=== PATIENT | female | born 1995 | race Caucasian/White ===

== ENCOUNTER 2019-12-27 12:49 | Outpatient (CLI) | payer OTHER ==
[~2019-12-27 12:49] MED LIST: Iopamidol 300 61% 50 ML VIAL FS ONE
--- NOTE | 2019-12-27 13:52 | RAD ---
Exam: Hysterosalpingogram grams with fluoroscopy HISTORY: screening Exposure: 0.7 minutes; 208.4 mcg/sq cm FINDINGS: Initial junior programmer radiograph: Normal appearing pelvis. No osseous abnormalities. Successful retrograde opacification of the endometrium. No filling defect. Contrast opacifies a paten t left and right fallopian tube. No filling defects. There is free spillage in the left and right hemipelvis. Lower uterine segment is grossly unremarkable IMPRESSION: Patent left and right fallopian tube.
== END 2019-12-27 12:50 | disposition home or self-care (01) ==
LOC: RAD 12:49
PROVIDERS: ATTEND Student in an Organized Health Care Education/Training Program
DX: Z36.9 Encounter for antenatal screening, unspecified (principal)
CPT/HCPCS: 58340; 74740; Q9967